=== PATIENT | male | born 1995 | race Two or more races ===

== ENCOUNTER 2017-06-27 11:17 | Emergency (ER) | payer OTHER ==
[2017-06-27 11:28] VITALS: RESP 18; TEMP 98; O2SAT 97
[2017-06-27] MEDS ORDERED: NS 1,000 ML IV ONE (11:49)
--- NOTE | 2017-06-27 11:55 | EDPHY ---
H & P Time Seen by Provider: 06/27/17 11:36 HPI/ROS: HPI Neck pain. 22-year-old male by private vehicle. This patient reports he was playing basketball yesterday. He reports that he had a basketball thrown at him which hit him directly in the anterior neck. He complains of pain to the anterior neck with discomfort with swallowing and a sensation of scratchiness in his throat and with his voice since that time. He is able to handle his secretions. He denies difficulty breathing. No loss of sensation or weakness in his extremities. No posterior neck pain. No other complaints. ROS: Constitutional: No fever, no chills. No weakness. ENT: No sore throat. No nasal congestion or rhinorrhea. As above. Respiratory: No cough. No shortness of breath. Cardiac: No chest pain, no palpitations. Musculoskeletal: No back pain. As above. No myalgias or arthralgias. Skin: No rashes. Neurological: No headache. No focal weakness or altered sensation. Past medical history: No past medical history. He is not on any medications. He has no allergies to medications. Social history: Nonsmoker. Here by himself. No alcohol. Physical Exam: General Appearance: Alert, no distress. This patient is responding to questions appropriately and in full sentences. This patient appears well- hydrated and well-nourished. Eyes: Pupils equal and round no pallor or injection. No lid edema, erythema or injection. ENT, Mouth: Mucous membranes are moist. The pharyngeal tissues are unremarkable. No edema or swelling. No asymmetry suggestive of abscess. No erythema or exudates. Vague tenderness on palpation over the lower thyroid and cricoid cartilages. No deformity or crepitus noted on palpation of this area. There is no stridor on auscultation of the neck. Handling his secretions well. No soft tissue swelling, erythema, edema or ecchymosis noted on inspection of the soft tissues of the neck. No venous distension. No midline or posterior neck pain on palpation. No pain on flexion of the neck. Respiratory: There are no retractions, lungs are clear to auscultation with good air movement bilaterally. Cardiovascular: Regular rate and rhythm. No murmur. Neurological: Motor sensory function is grossly intact. Cranial nerves are normal. Gait is normal. Skin: Warm and dry, no rashes. Extremities are symmetrical. All joints range without pain or impingement. Psychiatric: No agitation. No depression. Database: EKG: Imaging: CT angiogram of the neck: Negative. Vascular, cartilaginous and bony structures are unremarkable. Larynx an airway well patent. Results were discussed with staff radiologist Dr. Vladislav Bartlett. Procedures: Emergency department course: IV placed. He was started on IV normal saline with 500 cc to be given over the next hour. CT angiogram of the neck will be obtained to evaluate for potential vascular versus soft tissue verses bony cartilaginous injury. 1:15 p.m., patient re-evaluated. Resting comfortably at this time. Results of CT scan discussed with him. Repeat auscultation of his neck, no stridor. He is not having any difficulty swallowing. He feels comfortable going home and I feel he is safe for discharge. Return to emergency department precautions were discussed with him. Follow-up was discussed. All of his questions were answered. He was discharged in good condition. Differential Diagnosis: The differential diagnosis on this patient includes but is not limited to thyroid cartilage contusion, cricoid cartilage contusion. Laryngeal injury, vascular injury, hematoma unlikely. This represents a partial list of diagnoses considered. These considerations are based on history, physical exam , past history, reassessment and diagnostic testing. Smoking Status: Never smoked Constitutional: Initial Vital Signs Temperature (C) 36.6 C 06/27/17 11:24 Heart Rate 74 06/27/17 11:24 Respiratory Rate 18 06/27/17 11:24 Blood Pressure 122/62 H 06/27/17 11:24 O2 Sat (%) 97 06/27/17 11:24 O2 Delivery Mode Room Air Allergies/Adverse Reactions: No Known Allergies Allergy (Verified 05/03/13 18:11) Home Medications: Medication Instructions Recorded Citalopram 05/03/13 Xanax 05/03/13 AZITHROMYCIN [Z-PACK] 250 mg PO DAILY #6 tab 03/13/16 Albuterol Hfa Anes Only [Proair 2 mdi IH QID PRN #1 mdi 03/13/16 Hfa Icu (*)] Ondansetron Odt [Zofran Odt 4 mg 4 mg PO Q4 PRN #20 tab 03/13/16 (*)] Sertraline HCl [Zoloft 25mg (RX)] DAILY 03/13/16 guaiFENesin/CODEINE PHOS 5 - 10 ml PO HS #120 ml 03/13/16 [Robitussin AC] Medical Decision Making - Diagnostics Imaging Results: Imaging Impressions Neck CTA 06/27/17 11:50 Impression: 1. Normal CT angiogram of the carotids and vertebral arteries. 2. No significant soft tissue hematoma or abnormal fluid collection. Results called and discussed with Raul Wilkins MD, at 1306 hours 27/06. Measurement of carotid stenosis is based on the residual internal carotid diameter with [place] Symptomatic Carotid Endarterectomy Trial (NASCET) based stenosis levels. - Data Points Laboratory Results: Laboratory Results 06/27/17 12:10 06/27/17 12:10 Sodium 147 mEq/L H mEq/L (134-144) Potassium 4.1 mEq/L mEq/L (3.5-5.2) Chloride 107 mEq/L mEq/L (97-110) Carbon Dioxide 25 mEq/l mEq/l (22-31) Anion Gap 15 mEq/L mEq/L (8-16) BUN 14 mg/dL mg/dL (7-23) Creatinine 0.8 mg/dL mg/dL (0.7-1.3) Estimated GFR > 60 Glucose 82 mg/dL mg/dL (70-100) Calcium 9.3 mg/dL mg/dL (8.5-10.4) Medications Given: Discontinued Medications Sodium Chloride (Ns) 1,000 mls @ 0 mls/hr IV ONCE ONE; Wide Open PRN Reason: Protocol Stop: 06/27/17 11:50 Last Admin: 06/27/17 12:13 Dose: 1,000 mls Departure - Departure Disposition: Home, Routine, Self-Care Clinical Impression: Neck pain Condition: Good Instructions: Crush Injury (ED) Additional Instructions: Read and follow provided instructions. Follow-up with your primary care physician as needed, you're still having any symptoms on Friday for re-evaluation. Ibuprofen dosin mg every 6 hours with meals for the next 3 days only. Return to the emergency department for worsening symptoms, difficulty swallowing , voice changes, difficulty breathing, worsening pain or other serious concerns. Referrals: Omid Haney DO [Primary Care Provider] - As per Instructions Stand Alone Forms: Work Excuse
[2017-06-27 12:30] LABS: ANION GAP 15 mEq/L (8-16); CALCIUM 9.3 mg/dL (8.5-10.4); CARBON DIOXIDE 25 mEq/l (22-31); CHLORIDE 107 mEq/L (97-110); CREATININE 0.8 mg/dL (0.7-1.3); GLOMERULAR FILTRATION RATE > 60; GLUCOSE 82 mg/dL (70-100); POTASSIUM 4.1 mEq/L (3.5-5.2); SODIUM 147 mEq/L (134-144)
[2017-06-27] MEDS ORDERED: IOPAMIDOL (ISOVUE 370) 100 ML BTL IV ONE (12:33)
[2017-06-27 13:40] VITALS: BP 124/85; PULSE 87
== END 2017-06-27 13:39 | disposition home or self-care (01) ==
LOC: CED 11:17
DX: S19.9XXA Unspecified injury of neck, initial encounter (principal); E86.9 Volume depletion, unspecified; W21.05XA Struck by basketball, initial encounter; Y99.8 Other external cause status; Y93.67 Activity, basketball
CPT/HCPCS: 70498-PO; 80048-PO; Q9967

== ENCOUNTER 2018-02-27 12:24 | Emergency (ER) | payer OTHER ==
[2018-02-27] MEDS ORDERED: TDAP ADULT 0.5 ML INJ (BOOSTRIX) IM ONE (12:31)
--- NOTE | 2018-02-27 12:32 | EDPHY ---
H & P Time Seen by Provider: 02/27/18 12:30 HPI/ROS: CHIEF COMPLAINT: Right hand injury HISTORY OF PRESENT ILLNESS: A brick was dropped on his hand work today. Pain is in the right hand mostly over the dorsal part of the metacarpal phalangeal joints of the ring small and little fingers. Denies weakness or numbness distally. REVIEW OF SYSTEMS: No other injury PAST MEDICAL HISTORY: Tetanus not up-to-date, anxiety Social history: Nonsmoker General Appearance: Alert and conversant, cooperative. Swelling and tenderness on all 4 finger metacarpals on the dorsal side. Abrasion to those metacarpals as well as to the dorsum of the PIP of the index and middle finger. Normal flexor and extensor function, normal capillary refill. Sensation intact to light touch distally. No wrist or forearm pain or tenderness. Emergency Department course/MDM: Tetanus updated, ice pack, x-ray of the right hand. 1240: X-ray reviewed by myself and interpreted, negative for fracture. Wound care, oral ibuprofen, symptomatic treatment. Smoking Status: Never smoked Constitutional: Initial Vital Signs Temperature (C) 36.5 C 02/27/18 12:33 Heart Rate 73 02/27/18 12:33 Respiratory Rate 16 02/27/18 12:33 Blood Pressure 131/86 H 02/27/18 12:33 O2 Sat (%) 96 02/27/18 12:33 O2 Delivery Mode Room Air Allergies/Adverse Reactions: No Known Allergies Allergy (Verified 02/27/18 12:28) Home Medications: Medication Instructions Recorded Xanax 05/03/13 clomiPRAMINE 02/27/18 MDM/Departure - MDM Imaging Results: Imaging Impressions Hand X-Ray 02/27/18 12:31 Impression: [place] soft tissue swelling. Imaging: I viewed and interpreted images myself Medications Given: Discontinued Medications Diphtheria/Tetanus/Acell Pertussis (Boostrix) 0.5 ml IM .ONCE ONE Stop: 02/27/18 12:32 Last Admin: 02/27/18 12:47 Dose: 0.5 ml Ibuprofen (Motrin) 600 mg PO EDNOW ONE Stop: 02/27/18 12:40 Last Admin: 02/27/18 12:43 Dose: 600 mg - Depart Disposition: Home, Routine, Self-Care Clinical Impression: Contusion of right hand including fingers Qualifiers: Encounter type: initial encounter Qualified Code(s): S60.221A - Contusion of right hand, initial encounter Abrasion of right hand and fingers Qualifiers: Encounter type: initial encounter Qualified Code(s): S60.511A - Abrasion of right hand, initial encounter Condition: Good Instructions: Contusion in Adults (ED), Abrasion (ED) Additional Instructions: Activity as tolerated. You had your tetanus vaccine status updated today. Referrals: Omid Haney, [Primary Care Provider] - As per Instructions
[2018-02-27 12:35] VITALS: BP 131/86
[2018-02-27] MEDS ORDERED: IBUPROFEN 600 MG TAB PO ONE (12:39)
== END 2018-02-27 12:48 | disposition home or self-care (01) ==
LOC: CED 12:24
DX: S60.221A Contusion of right hand, initial encounter (principal); S60.511A Abrasion of right hand, initial encounter; Z23 Encounter for immunization; W20.8XXA Other cause of strike by thrown, projected or falling object, initial encounter; Y92.69 Other specified industrial and construction area as the place of occurrence of the external cause; Y99.0 Civilian activity done for income or pay; Y93.89 Activity, other specified
CPT/HCPCS: 73130-PO

== ENCOUNTER 2018-04-28 21:01 | Emergency (ER) | payer OTHER ==
[2018-04-28] MEDS ORDERED: ONDANSETRON 4 MG/2 ML VIAL IVP ONE (21:22)
[2018-04-28] MEDS ORDERED: NS 1,000 ML IV ONE ×2 (21:22→23:23)
--- NOTE | 2018-04-28 21:24 | EDPHY ---
H & P Stated Complaint: Epigastric pain, nausea, vomiting since Sat. Source: Patient Exam Limitations: No limitations - Personal History Current Tetanus/Diphtheria Vaccine: Unsure Current Tetanus Diphtheria and Acellular Pertussis (TDAP): Unsure Tetanus Vaccine Date: < 10 years - Medical/Surgical History Hx Asthma: No Hx Chronic Respiratory Disease: No Hx Diabetes: No Hx Cardiac Disease: No Hx Renal Disease: No Hx Cirrhosis: No Hx Alcoholism: No Hx HIV/AIDS: No Hx Splenectomy or Spleen Trauma: No Other PMH: anxiety. Surg-none - Family History Significant Family History: No pertinent family hx - Social History Smoking Status: Never smoked Alcohol Use: Sober Time Seen by Provider: 04/28/18 21:18 HPI/ROS: CHIEF COMPLAINT: Vomiting HISTORY OF PRESENT ILLNESS: The patient is a 23-year-old man with no significant past medical history who comes to the emergency department complaining of nausea vomiting since Friday. He states that he has been vomiting 2-3 times per day. No fever. No diarrhea. He complains that today he 's also having some bloating and cramping. No recent travel. No symptoms. REVIEW OF SYSTEMS: Constitutional: denies: chills, fever, recent illness, recent injury EENTM: denies: blurred vision, double vision, nose congestion Respiratory: denies: cough, shortness of breath Cardiac: denies: chest pain, irregular heart rate, lightheadedness, palpitations Gastrointestinal/Abdominal: See HPI denies: diarrhea, blood streaked stools Genitourinary: denies: dysuria, frequency, hematuria, pain Musculoskeletal: denies: joint pain, muscle pain Skin: denies: lesions, rash, jaundice, bruising Neurological: denies: headache, numbness, paresthesia, tingling, dizziness, weakness Hematologic/Lymphatic: denies: blood clots, easy bleeding, easy bruising Immunologic/allergic: denies: HIV/AIDS, transplant EXAM: GENERAL: Well-appearing, well-nourished and in no acute distress. HEAD: Atraumatic, normocephalic. EYES: Pupils equal round and reactive to light, extraocular movements intact, sclera anicteric, conjunctiva are normal. ENT: TMs normal, nares patent, oropharynx clear without exudates. Moist mucous membranes. NECK: Normal range of motion, supple without lymphadenopathy or JVD. LUNGS: Breath sounds clear to auscultation bilaterally and equal. No wheezes rales or rhonchi. HEART: Regular rate and rhythm without murmurs, rubs or gallops. ABDOMEN: Soft, nontender, normoactive bowel sounds. No guarding, no rebound. No masses appreciated. BACK: No CVA tenderness, no spinal tenderness, step-offs or deformities EXTREMITIES: Normal range of motion, no pitting or edema. No clubbing or cyanosis. NEUROLOGICAL: Cranial nerves II through XII grossly intact. Normal speech, normal gait. 5/5 strength, normal movement in all extremities, normal sensation PSYCH: Normal mood, normal affect. SKIN: Warm, dry, normal turgor, no visible rashes or lesions. (Luis Sosa) Constitutional: Initial Vital Signs Temperature (C) 37.3 C 04/28/18 21:19 Heart Rate 86 04/28/18 21: Respiratory Rate 18 04/28/18 21: Blood Pressure 145/89 H 04/28/18 21: O2 Sat (%) 97 04/28/18 21:19 O2 Delivery Mode Room Air Allergies/Adverse Reactions: No Known Allergies Allergy (Verified 04/28/18 21:22) Home Medications: Medication Instructions Recorded Ondansetron Odt [Zofran Odt 4 mg 4 mg PO Q4 PRN #20 tab 04/28/18 (RX)] Medical Decision Making ED Course/Re-evaluation: Accepted care of patient from Dr. Sosa. Likely home after IVF if PO challenge successful. Re-evaluated patient at 11:26pm. Still not avid for PO 's. Will give second liter IVF. (Joellen Harding) We had difficulty getting IV and lab work. Eventually placed a IJ with ultrasound guidance with a 18 gauge IV. Lab work is now pending. Patient's nausea has improved. His abdominal exam remains benign. The patient's abdominal exam remains benign. If the remainder of his lab work is unremarkable I expect that he will be safe to discharge. I will prepare his paperwork as such. (Luis Sosa) Differential Diagnosis: Partial list of the Differential diagnosis considered include but were not limited to; gastritis, food poisoning, dehydration and although unlikely based on the history and physical exam, I also considered appendicitis, urinary tract infection, biliary disease, hernia, torsion. (Luis Sosa) - Data Points Laboratory Results: Laboratory Results 04/28/18 22:40 Medications Given: Discontinued Medications Sodium Chloride (Ns) 1,000 mls @ 0 mls/hr IV EDNOW ONE; Wide Open PRN Reason: Protocol Stop: 04/28/18 21:23 Last Admin: 04/28/18 22:20 Dose: 1,000 mls Sodium Chloride (Ns) 1,000 mls @ 0 mls/hr IV EDNOW ONE; Wide Open PRN Reason: Protocol Stop: 04/28/18 23:24 Last Admin: 04/28/18 23:26 Dose: 1,000 mls Ondansetron HCl (Zofran) 4 mg IVP EDNOW ONE Stop: 04/28/18 21:23 Last Admin: 04/28/18 22:20 Dose: 4 mg Ondansetron HCl (Zofran Odt 4 Mg Prepack#2) 1 btl TAKEHOME EDNOW ONE Stop: 04/29/18 00:05 Last Admin: 04/29/18 00:30 Dose: 1 btl Point of Care Test Results: Chemistry 04/28/18 22:30 POC Sodium 142 mEq/L mEq/L (135-145) POC Potassium 3.3 mEq/L mEq/L (3.3-5.0) POC Chloride 104.0 mEq/L mEq/L (97-110) POC Total CO2 28 mEq/L mEq/L (22-31) POC BUN 13 mg/dL mg/dL (7-23) POC Creatinine 0.7 mg/dL mg/dL (0.7-1.3) POC Glucose 94 mg/dL mg/dL (70-100) POC Calcium 9.1 mg/dL mg/dL (8.5-10.4) POC Total Bilirubin 0.9 mg/dL mg/dL (0.1-1.4) POC AST 35 IU/L IU/L (17-59) POC ALT 30 IU/L IU/L (21-72) POC Alk Phosphatase 52 IU/L IU/L (38-126) POC Total Protein 7.0 g/dL g/dL (6.3-8.2) POC Albumin 3.9 g/dL g/dL (3.5-5.0) Urine Dip Collection Date 04/28/18 Collection Time 21:46 Specific [place] (1.002-1.030) 1.020 PH (5.0-7.5) 6.0 Leukocytes (Negative) Negative Nitrites (Negative) Negative Protein (Negative) Negative Glucose (Negative) Negative Ketones (Negative) Negative Urobilnogen (0.2-1.0 EU) 0.2 Bilirubin (Negative) Negative Blood (Negative) Negative Departure - Departure Disposition: Home, Routine, Self-Care Clinical Impression: Dehydration Vomiting Qualifiers: Vomiting type: unspecified Vomiting Intractability: non-intractable Nausea presence: without nausea Qualified Code(s): R11.11 - Vomiting without nausea Condition: Fair Instructions: Ondansetron (By mouth), Acute Nausea and Vomiting (ED) Referrals: Omid Haney DO [Primary Care Provider] - As per Instructions Prescriptions: Ondansetron Odt [Zofran Odt 4 mg (RX)] 4 mg PO Q4 PRN #20 tab PRN Reason: Nausea & Vomiting
[2018-04-28 22:59] LABS: PLATELET COUNT 210 10^3/uL (150-400)
[2018-04-29 00:02] VITALS: BP 120/77
[2018-04-29] MEDS ORDERED: ONDANSETRON 4MG PREPACK#2 BTL TAKEHOME ONE (00:04)
== END 2018-04-29 00:32 | disposition home or self-care (01) ==
LOC: CED 21:01
DX: R11.11 Vomiting without nausea (principal); E86.0 Dehydration; E86.9 Volume depletion, unspecified
CPT/HCPCS: 80053-PO; 96374; J2405

== ENCOUNTER → 2018-05-08 | Outpatient (CLI) | payer OTHER | LOC: FIMAGING 09:50 | PROVIDERS: ATTEND Family Medicine | DX: S86.012A Strain of left Achilles tendon, initial encounter (principal); X58.XXXA Exposure to other specified factors, initial encounter; Y93.67 Activity, basketball ==